=== PATIENT | male | born 1960 | race Caucasian/White ===

== ENCOUNTER 2021-11-22 11:54 | Day surgery (SDC) | payer OTHER ==
[~2021-11-22] VITALS: Ht 185.4 cm; Wt 100.0 kg
--- NOTE | ~2021-11-22 | OR ---
[facility] [address], [place] [address] Draft DATE OF OPERATION: 11/22/2021 SURGEON: Yocasta Fajardo MD PREOPERATIVE DIAGNOSES: 1. Chronic persistent diarrhea without bleeding. 2. Known gastroesophageal reflux disease. POSTOPERATIVE DIAGNOSES: 1. Normal upper endoscopy. 2. Normal-appearing colon. PROCEDURE: 1. Esophagogastroduodenoscopy with biopsy. 2. Total colonoscopy to cecum with biopsy of rectum. ANESTHESIA: Intravenous sedation, fentanyl 100 mcg, Versed 6 mg (total). 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 He is referred for reflux symptoms for which he takes PPI medication while controlling his symptoms as well as colonoscopy for persistent ongoing nonbloody diarrhea. The patient understands the risks of upper endoscopy and colonoscopy and wished to proceed. FINDINGS: Upper endoscopy did not show hiatal hernia; I saw no evidence of obvious esophagitis, and certainly, there was no Wagner's epithelium. The flap valve was good. Rugal folds were normal as was the duodenum. Biopsies were taken throughout. CLOtest was -30 minutes post procedure. As regard to colonoscopy, the prep was excellent. Complete colonoscopy was undertaken for visualization of the cecum. There was no mucosal abnormality, specifically no polyps, diverticular formation, colitis, or cancer. Biopsies were taken of the rectosigmoid to assure there was no microscopic colitis. DESCRIPTION OF PROCEDURE: The patient was brought to the endoscopy suite, given topical lidocaine hypopharyngeal anesthesia. A bite block was placed. Intravenous sedation was induced under full PATIENT NAME: MUNIR ROJAS OPERATIVE REPORT DATE OF : 60 REPORT #: [id number] PHYSICIAN: YOCASTA FAJARDO MD PCP: CHESTER VENTURA MD REPORT IS CONFIDENTIAL AND NOT TO BE RELEASED WITHOUT AUTHORIZATION [facility] [address], [place] [address] Draft cardiopulmonary monitoring. An Olympus video upper endoscope was placed in the hypopharynx. The vocal cords appeared normal. The scope was easily passed in the esophagus. The esophagus throughout its length was normal. Upon entering the stomach, there was a fair amount of bile, but not too much and no sign of bile gastritis proper. Rugal folds were normal. The antrum was normal as was the pylorus. The scope was passed through into the duodenum, which was normal. Biopsies were taken of the duodenum. The scope was withdrawn and biopsies were taken of the antrum for both DAVID and pathologic testing. Retroflexed view showed a good flap valve. No sign of hiatal hernia or anything of that sort. The scope was straightened, withdrawn and biopsies taken of the distal esophageal mucosa which was normal. Further withdrawal after biopsy of the mid esophagus. Scope was then removed. Plans were then made for colonoscopy. Additional sedation was given. Digital rectal examination was normal. An Olympus video colonoscope was passed in the rectum and manipulated throughout the colon noting no sign of abnormality, particularly though the colon was somewhat tortuous. The scope was ultimately passed to the right colon and allowed visualization of the cecum, but not full intubation of it. There were no abnormalities noted. The scope was then withdrawn and careful inspection throughout showed no sign of polyps, diverticular formation, colitis, or cancer. Retroflexed view was normal as well. The scope was repositioned and biopsies taken of the rectosigmoid to assess for occult colitis. Scope was removed and the patient was taken to the recovery room in good condition. CONCLUSION DIAGNOSIS: 1. Normal upper endoscopy. Clinical evidence of reflux; would recommend continued use of PPI medication, which has been proven safe even in long-term use (Isabelle Houston 2020). 2. Normal-appearing colon; it is unlikely that he has occult colitis. However, biopsies were obtained of the rectosigmoid to assess for that. Would have him consider Questran 4 g p.o. b.i.d. for the time being. We will see him back in the office 4-6 weeks and assess the progress of his management for diarrhea. MD MACHO Marie/JOHN PATIENT NAME: MUNIR ROJAS OPERATIVE REPORT DATE OF : 60 REPORT #: [id number] PHYSICIAN: YOCASTA FAJARDO MD PCP: CHESTER VENTURA MD REPORT IS CONFIDENTIAL AND NOT TO BE RELEASED WITHOUT AUTHORIZATION [facility] [address], [place] [address] Draft /[id number] cc: ELIZABET White Copies: ~ PATIENT NAME: MUNIR ROJAS OPERATIVE REPORT DATE OF : 60 REPORT #: [id number] PHYSICIAN: YOCASTA FAJARDO MD PCP: CHSETER VENTURA MD REPORT IS CONFIDENTIAL AND NOT TO BE RELEASED WITHOUT AUTHORIZATION
[~2021-11-22 11:54] MED LIST: DILTIAZEM ER120 MG PO; EMERGEN-C 1,01000 MG PO; FLOMAX0.4 MG PO; PANTOPRAZOLE SO40 MG PO
[2021-11-22] MEDS ORDERED: MYRBETRIQ50 MG PO (12:22)
--- NOTE | 2021-11-22 14:25 | NUR ---
11/22/21 1425 Tamica Espinal PT TO PACU AWAKE AND ALERT DENIES PAIN OR NAUSEA
--- NOTE | 2021-11-25 13:44 | PATH ---
[facility] [address], [place] [address] Signed SPECIMEN(S): A DUODENAL BIOPSY SPECIMEN(S): B ANTRUM/ANTRAL BIOPSY SPECIMEN(S): C DISTAL ESOPHAGEAL BIOPSY SPECIMEN(S): D MID ESOPHAGEAL BIOPSY SPECIMEN(S): E RECTUM SPECIMEN SOURCE: A. DUODENAL BIOPSY B. ANTRUM/ANTRAL BIOPSY C. DISTAL ESOPHAGEAL BIOPSY D. MID ESOPHAGEAL BIOPSY E. RECTUM CLINICAL HISTORY: GERD with esophagitis; diarrhea FINAL PATHOLOGIC DIAGNOSIS: A. Duodenum, biopsy: - Duodenal mucosa with no significant pathologic changes. B. Stomach, antrum, biopsy: - Gastric antral and oxyntic mucosa with no significant pathologic changes. - Negative for Helicobacter pylori with HE stains. C. Esophagus, distal, biopsy: - Esophageal squamous mucosa with no significant pathologic changes. D. Esophagus, mid, biopsy: - Esophageal squamous mucosa with no significant pathologic changes. E. Rectum, biopsy: - Colonic mucosa with no significant pathologic changes. BRP:smn:[id number] MICROSCOPIC EXAMINATION: Histologic sections of all submitted blocks are examined by light microscopy. These findings, together with the gross examination, support the pathologic diagnosis. GROSS DESCRIPTION: Five specimens are received in five containers, labeled "Munir Gee." A. The specimen, labeled " Munir Gee, #1," and designated on the requisition "duodenum biopsy," is received in formalin and consists of three harvey soft tissue fragments that measure 0.3 to 0.7 cm in greatest dimension. The specimen is entirely submitted in cassette (A1). PATIENT NAME: MUNIR GEE PATHOLOGY DATE OF : 60 REPORT #: [id number] PHYSICIAN: MARGIE RADFORD PCP: CHESTER VENTURA MD REPORT IS CONFIDENTIAL AND NOT TO BE RELEASED WITHOUT AUTHORIZATION [facility] [address], [place] [address] Signed B. The specimen, labeled " Munir Gee, #2," and designated on the requisition "antrum biopsy," is received in formalin and consists of two harvey soft tissue fragments that measure 0.4 and 0.6 cm in greatest dimension. The specimen is entirely submitted in cassette (B1). C. The specimen, labeled " Munir Gee, #3," and designated on the requisition "distal esophagus," is received in formalin and consists of four white-harvey soft tissue fragments that measure 0.4 to 0.5 cm in greatest dimension. The specimen is entirely submitted in cassette (C1). D. The specimen, labeled " Munir Gee, #4," and designated on the requisition "mid esophagus biopsy," is received in formalin and consists of two white-harvey soft tissue fragments that measure 0.3 and 0.3 cm in greatest dimension. The specimen is entirely submitted in cassette (D1). E. The specimen, labeled " Munir Gee, #5," and designated on the requisition "rectum biopsy," is received in formalin and consists of four harvey soft tissue fragments that measure 0.3 to 0.5 cm in greatest dimension. The specimen is entirely submitted in cassette (E1). FB (under the direct supervision of a pathologist) The Gross Description was prepared using a voice recognition system. The report was reviewed for accuracy; however, sound-alike word errors, addition and/or deletions may occur. If there is any question about this report, please contact Client Services. PERFORMING LABORATORY: The technical component was performed by [facility], [address] [place] [id number] (CLIA# [id number]). Professional interpretation was performed by [facility], [address] [place] [id number] (CLIA# [id number]). Diagnostician: Efrem Benavidez MD Pathologist Electronically Signed 11/25/2021 Copies: ~ PATIENT NAME: MUNIR GEE PATHOLOGY DATE OF : 60 REPORT #: [id number] PHYSICIAN: MARGIE PATHOLOGY PCP: CHESTER VENTURA MD REPORT IS CONFIDENTIAL AND NOT TO BE RELEASED WITHOUT AUTHORIZATION
== END 2021-11-22 15:00 | disposition home or self-care (01) ==
LOC: OPS 11:54 → DS 11:54 → OPS 13:00
PROVIDERS: ATTEND Surgery
PROC: 0DB28ZX Excision of Middle Esophagus, Via Natural or Artificial Opening Endoscopic, Diagnostic (ICD-10-PCS; 2021-11-22)
PROC: 0DB38ZX Excision of Lower Esophagus, Via Natural or Artificial Opening Endoscopic, Diagnostic (ICD-10-PCS; 2021-11-22)
PROC: 0DBN8ZX Excision of Sigmoid Colon, Via Natural or Artificial Opening Endoscopic, Diagnostic (ICD-10-PCS; 2021-11-22)
PROC: 0DB98ZX Excision of Duodenum, Via Natural or Artificial Opening Endoscopic, Diagnostic (ICD-10-PCS; principal; 2021-11-22 13:00)
PROC: 0DB68ZX Excision of Stomach, Via Natural or Artificial Opening Endoscopic, Diagnostic (ICD-10-PCS; 2021-11-22 13:00)
DX: K52.9 Noninfective gastroenteritis and colitis, unspecified (principal); K21.00 Gastro-esophageal reflux disease with esophagitis, without bleeding
CPT/HCPCS: 99153; G0500; J2250; J3010; J7121